=== PATIENT | female | born 1965 | race Caucasian/White ===

== ENCOUNTER 2017-05-04 15:46 | Emergency (ER) | payer OTHER, MEDICARE ==
[~2017-05-04] VITALS: Ht 175.3 cm; Wt 100.0 kg
[~2017-05-04 15:46] MED LIST: ACETAMIN325 MG PO; ATIVAN1 MG OR; BYSTOLIC5 MG OR; CARVEDILOL6.25 MG PO; CIPRO500 MG OR; CLINDAMYCIN300 M1 OR; CYCLOBENZAPR10 MG PO; DEPO-MEDROL80 MG/ML IM; DILAUDID 2MG2 MG/TA1 PO; EQL IBUPROFEN200 MG PO; FLEXERIL OR; FLEXERIL PO; IBUPROFEN600 MG; LEVAQUIN500 MG OR; LORTAB 10 PO; LYRICA75 MG OR; METOPROL TAR25 M1 PO; NAPROSYN500 MG PO; NICOTINE T21 MG/PATC TD; NO; NORCO1 TA1 PO; OMEPRAZOLE20 MG PO; OXYCODONE HCL15 MG PO; OXYCODONE30 MG OR; OXYCODONE40 MG OR; PERCOCET 10/31 COMBO PO; PHENTERMINE15 MG PO; SOMA350 MG OR; SOMA350 MG PO; STERAPRED DS10 MG PO; TRAMADOL HCL50 MG PO; VALIUM5 MG PO; VICODIN1 TAB OR; ZPAK PO; [UNRECOGNIZED DRUG - OTHER] OR
[2017-05-04] MEDS ORDERED: ZOFRAN ODT4 MG PO (18:12)
[2017-05-04] MEDS ORDERED: ANTIVERT PO (18:12)
[2017-05-04] MEDS ORDERED: TYLENOL # 31 TAB PO (18:12)
[2017-05-04 18:14] VITALS: BP 179/111
== END 2017-05-04 18:31 | disposition home or self-care (01) | DRG 90 ==
LOC: ED 15:46
DX: S06.0X0A Concussion without loss of consciousness, initial encounter (principal); R42 Dizziness and giddiness; S16.1XXA Strain of muscle, fascia and tendon at neck level, initial encounter; R11.0 Nausea; W22.09XA Striking against other stationary object, initial encounter; Y92.009 Unspecified place in unspecified non-institutional (private) residence as the place of occurrence of the external cause

== ENCOUNTER 2017-08-17 09:07 | Emergency (ER) | payer OTHER, MEDICARE ==
[~2017-08-17] VITALS: Ht 175.3 cm; Wt 104.5 kg
[~2017-08-17 09:07] MED LIST changes: +ANTIVERT PO; +TYLENOL # 31 TAB PO; +ZOFRAN ODT4 MG PO
[2017-08-17] MEDS ORDERED: EC-NAPROSYN500 MG PO (09:37)
[2017-08-17 09:39] VITALS: BP 151/83
== END 2017-08-17 09:47 | disposition home or self-care (01) | DRG 554 ==
LOC: ED 09:07
DX: M19.011 Primary osteoarthritis, right shoulder (principal); F17.210 Nicotine dependence, cigarettes, uncomplicated; I10 Essential (primary) hypertension

== ENCOUNTER 2018-05-27 14:31 | Emergency (ER) | payer OTHER, MEDICARE ==
[~2018-05-27] VITALS: Ht 175.3 cm; Wt 101.4 kg
[~2018-05-27 14:31] MED LIST changes: +EC-NAPROSYN500 MG PO
[2018-05-27 15:12] LABS: HEMATOCRIT 42.5 % (37.0-47.0); HEMOGLOBIN 14.5 g/dl (12.0-16.0); IMMATURE GRANULOCYTES 0.3 % (0.0-5.0); MEAN CELL VOLUME 88.9 fL CALC (80.0-100.0); MEAN CORPUSCULAR HGB 30.3 pG CALC (26.0-32.0); MEAN CORPUSCULAR HGB CONC 34.1 g/L CALC (32.0-36.0); NEUT# 6.95 thou/uL (2.00-7.15); RED BLOOD COUNT 4.78 mill/uL (4.20-5.60); RED CELL DISTRI WIDTH 13.1 % (11.5-15.5)
[2018-05-27 15:24] LABS: INTERNATIONAL NORMALIZED RATIO 1.1 RATIO (0.7-1.3); PROTHROMBIN TIME 11.2 SECONDS (9.0-12.5)
[2018-05-27 15:27] LABS: ALBUMIN 4.3 g/dL (3.2-5.0); ALKALINE PHOSPHATASE 82 u/l (38-126); BILIRUBIN, TOTAL 0.8 mg/dL (0.0-1.4); BUN 19 mg/dL (7-17); BUN/CREATININE RATIO 22 (12-20 (CALC)); CARBON DIOXIDE 21 mmol/l (22-30); CHLORIDE 107 mmol/l (95-108); CREATININE 0.9 mg/dL (0.5-1.0); GFR > 60 ML/MIN (>=60 (CALC)); GFR FOR AFR.AMER. > 60 ML/MIN (>=60 (CALC)); SGOT/AST 28 u/l (14-36); SODIUM 141 mmol/l (137-146); TOTAL PROTEIN 7.4 g/dL (6.3-8.2)
[2018-05-27 15:29] LABS: ANION GAP 17 (6-22 (CALC)); POTASSIUM 3.7 mmol/l (3.5-5.1)
[2018-05-27] MEDS ORDERED: XANAX0.5 MG PO (18:02)
[2018-05-27 18:33] VITALS: BP 108/65
== END 2018-05-27 18:44 | disposition home or self-care (01) | DRG 310 ==
LOC: ED 14:31
PROVIDERS: Emergency Medicine
DX: R00.2 Palpitations (principal); R42 Dizziness and giddiness; F41.9 Anxiety disorder, unspecified; R07.9 Chest pain, unspecified; R06.02 Shortness of breath; I10 Essential (primary) hypertension; F17.200 Nicotine dependence, unspecified, uncomplicated
CPT/HCPCS: J1650; J2060

== ENCOUNTER 2019-10-10 | Emergency (ER) | payer OTHER, MEDICARE ==
[~2019-10-10] MED LIST changes: +XANAX0.5 MG PO
[2019-10-10] MEDS ORDERED: B COMPLE2 PO (14:17)
[2019-10-10] MEDS ORDERED: VIT C/VIT E PO (14:17)
[2019-10-10 14:30] LABS: HEMATOCRIT 39.2 % (37.0-47.0); HEMOGLOBIN 12.8 g/dl (12.0-16.0); IMMATURE GRANULOCYTES 0.3 % (0.0-5.0); MEAN CELL VOLUME 88.9 fL CALC (80.0-100.0); MEAN CORPUSCULAR HGB CONC 32.7 g/L CALC (32.0-36.0); NEUT# 6.14 thou/uL (2.00-7.15); RED BLOOD COUNT 4.41 mill/uL (4.20-5.60); RED CELL DISTRI WIDTH 13.3 % (11.5-15.5)
[2019-10-10 15:25] LABS: ANION GAP 13 (6-22 (CALC)); BUN 14 mg/dL (7-17); BUN/CREATININE RATIO 18 (12-20 (CALC)); CHLORIDE 105 mmol/l (95-108); CREATININE 0.8 mg/dL (0.5-1.0); GFR > 60 ML/MIN (>=60 (CALC)); GFR FOR AFR.AMER. > 60 ML/MIN (>=60 (CALC)); POTASSIUM 3.7 mmol/l (3.5-5.1); SODIUM 140 mmol/l (137-146)
[2019-10-10 15:26] LABS: CARBON DIOXIDE 26 mmol/l (22-30)
== END 2019-10-10 16:02 | disposition home or self-care (01) | DRG 310 ==
PROVIDERS: Family Medicine
DX: R00.2 Palpitations (principal); I10 Essential (primary) hypertension; F17.200 Nicotine dependence, unspecified, uncomplicated

== ENCOUNTER 2022-09-23 14:25 | Observation (INO) | payer OTHER, MEDICARE ==
[2022-09-23] VITALS (16 sets, daily range): BP systolic 104–159; BP diastolic 41–93
[~2022-09-23] VITALS: Ht 175.3 cm; Wt 110.6 kg
[~2022-09-23 14:25] MED LIST changes: +B COMPLE2 PO; +VIT C/VIT E PO
[2022-09-23] MEDS ORDERED: SLOW-MAG PO (14:47)
[2022-09-23 14:49] LABS: BASO% 0.7 % (0-3); EOS% 1.3 % (0-8); HEMATOCRIT 42.9 % (37.0-47.0); HEMOGLOBIN 13.8 g/dl (12.0-16.0); IMMATURE GRANULOCYTES 0.3 % (0.0-5.0); LYMPH% 34.1 % (15-41); MEAN CORPUSCULAR HGB 28.6 pG CALC (26.0-32.0); MEAN CORPUSCULAR HGB CONC 32.2 g/dL CAL (32.0-36.0); MONO% 5.1 % (2-13); NEUT# 5.99 thou/uL (2.00-7.15); NEUT% 58.5 % (42-76); RED BLOOD COUNT 4.82 mill/uL (4.20-5.60); RED CELL DISTRI WIDTH 13.2 % (11.5-15.5)
[2022-09-23 15:10] LABS: ALBUMIN 4.9 g/dL (3.2-5.0); ALKALINE PHOSPHATASE 65 u/l (38-126); ANION GAP 16 (6-22 (CALC)); BILIRUBIN, TOTAL 0.7 mg/dL (0.02-1.3); BUN 17 mg/dL (7-17); BUN/CREATININE RATIO 20 (12-20 (CALC)); CARBON DIOXIDE 29 mmol/l (22-30); CHLORIDE 102 mmol/l (95-108); CREATININE 0.9 mg/dL (0.5-1.0); GFR FOR AFR.AMER. > 60 ML/MIN (>=60 (CALC)); GFR OTHER RACES > 60 ML/MIN (>=60 (CALC)); LIPASE 151 u/l (23-300); POTASSIUM 4.4 mmol/l (3.5-5.1); SGOT/AST 34 u/l (14-36); SODIUM 141 mmol/l (137-146); TOTAL PROTEIN 8.2 g/dL (6.3-8.2)
[2022-09-24 04:02] VITALS: BP 120/56
[2022-09-24 05:42] LABS: CHOLESTEROL HDL RATIO 5.2 (<4.4 (CALC)); MAGNESIUM 2.1 mg/dL (1.6-2.3)
[2022-09-24 07:24] VITALS: BP 122/62
== END 2022-09-24 10:43 | disposition home or self-care (01) | DRG 313 ==
LOC: ED 14:25 → ED-I 16:20 → ED 16:35 → MS2 16:36
PROVIDERS: Nurse Practitioner; ADMIT Internal Medicine; ATTEND Internal Medicine
DX: R07.9 Chest pain, unspecified (principal); R00.2 Palpitations; I10 Essential (primary) hypertension; E66.9 Obesity, unspecified; F17.200 Nicotine dependence, unspecified, uncomplicated; Z23 Encounter for immunization
CPT/HCPCS: G0378; J1650

== ENCOUNTER 2022-10-07 10:56 | Emergency (ER) | payer OTHER, MEDICARE ==
[2022-10-07] VITALS (15 sets, daily range): BP systolic 117–165; BP diastolic 43–91
[~2022-10-07] VITALS: Ht 175.3 cm; Wt 115.4 kg
[~2022-10-07 10:56] MED LIST changes: +SLOW-MAG PO
[2022-10-07] MEDS ORDERED: ASPIRIN81 MG PO (11:39)
[2022-10-07] MEDS ORDERED: APPLE CIDER VI300 MG PO (11:40)
[2022-10-07 12:22] LABS: BASO% 0.8 % (0-3); EOS% 1.4 % (0-8); HEMATOCRIT 41.2 % (37.0-47.0); HEMOGLOBIN 13.4 g/dl (12.0-16.0); IMMATURE GRANULOCYTES 0.1 % (0.0-5.0); LYMPH% 31.1 % (15-41); MEAN CORPUSCULAR HGB 28.6 pG CALC (26.0-32.0); MEAN CORPUSCULAR HGB CONC 32.5 g/dL CAL (32.0-36.0); NEUT# 5.17 thou/uL (2.00-7.15); NEUT% 60.6 % (42-76); RED BLOOD COUNT 4.68 mill/uL (4.20-5.60)
[2022-10-07 12:30] LABS: ALBUMIN 4.4 g/dL (3.2-5.0); ALKALINE PHOSPHATASE 65 u/l (38-126); ANION GAP 13 (6-22 (CALC)); BILIRUBIN, TOTAL 0.4 mg/dL (0.02-1.3); BUN 16 mg/dL (7-17); BUN/CREATININE RATIO 23 (12-20 (CALC)); CARBON DIOXIDE 25 mmol/l (22-30); CHLORIDE 105 mmol/l (95-108); CREATININE 0.7 mg/dL (0.5-1.0); GFR FOR AFR.AMER. > 60 ML/MIN (>=60 (CALC)); GFR OTHER RACES > 60 ML/MIN (>=60 (CALC)); LIPASE 145 u/l (23-300); POTASSIUM 4.5 mmol/l (3.5-5.1); SGOT/AST 25 u/l (14-36); SODIUM 139 mmol/l (137-146); TOTAL PROTEIN 7.5 g/dL (6.3-8.2)
[2022-10-07] MEDS ORDERED: OMEPRAZOLE20 MG PO (15:03)
== END 2022-10-07 15:42 | disposition home or self-care (01) | DRG 392 ==
LOC: ED 10:56
PROVIDERS: Family Medicine
DX: R10.13 Epigastric pain (principal); R10.11 Right upper quadrant pain; E66.9 Obesity, unspecified